=== PATIENT | male | born 1995 | race Caucasian/White ===

== ENCOUNTER 2017-09-20 20:31 | Emergency (ER) | payer OTHER ==
[2017-09-20] MEDS ORDERED: Ketorolac Tromethamine 60 MG/2 ML VIAL ONE (20:57)
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
== END 2017-09-20 21:35 | disposition home or self-care (01) ==
LOC: SCSER 20:31
DX: S70.12XA Contusion of left thigh, initial encounter (principal); F17.210 Nicotine dependence, cigarettes, uncomplicated; V87.8XXA Person injured in other specified noncollision transport accidents involving motor vehicle (traffic), initial encounter
CPT/HCPCS: 96372; J1885

== ENCOUNTER 2019-12-07 12:25 | Outpatient (CLI) | payer OTHER ==
--- NOTE | 2019-12-07 12:50 | RAD ---
Exam:Right hand 3 views HISTORY: Carpal bone fracture COMPARISON: None FINDINGS: Preserved joint spaces. No fracture, cortical irregularity or periosteal reaction. IMPRESSION: No fracture. If there is pain or point tenderness, immobilization and follow-up imaging i n 7-10 days
== END 2019-12-07 12:26 | disposition home or self-care (01) ==
LOC: BICRAD 12:25
PROVIDERS: ATTEND Family Medicine
DX: S62.308A Unspecified fracture of other metacarpal bone, initial encounter for closed fracture (principal)